=== PATIENT | male | born 1965 | race Caucasian/White ===

== ENCOUNTER 2018-01-22 13:42 | Inpatient (IN) | payer BC ==
[2018-01-22] MEDS ORDERED: ASPIRIN 81 MG PO STA (14:27)
[2018-01-22] MEDS ORDERED: NITROGLYCERIN OINT 1 INCH/GM PACKET TOPICAL STA (14:27)
--- NOTE | 2018-01-22 14:31 | ED ---
General Adult HPI - General Chief complaint: Chest Pain Stated complaint: chest pain Time Seen by Provider: 01/22/18 14:04 Source: patient, RN notes reviewed Mode of arrival: wheelchair Limitations: no limitations - History of Present Illness Initial comments: Patient is a pleasant 52-year-old male presenting to the emergency department with complaints of chest discomfort. Onset of symptoms was this morning while picking up a battery. Discomfort has been stable since that time however has improved. Discomfort is currently 4/10. Discomfort feels like heaviness without radiation. No associated dyspnea, nausea, or diaphoresis. Patient states symptoms do worsen with exertion. Patient did have similar symptoms a week ago with similar onset. Otherwise symptoms are not chronic. - Related Data Home Medications Medication Instructions Recorded Confirmed Aspirin EC [Ecotrin Low Dose] 81 mg PO DAILY 01/22/18 01/22/18 Allergies Allergy/AdvReac Type Severity Reaction Status Date / Time No Known Allergies Allergy Verified 01/22/18 14:20 Review of Systems ROS Statement: Those systems with pertinent positive or pertinent negative responses have been documented in the HPI. ROS Other: All systems not noted in ROS Statement are negative. Constitutional: Denies: fever Eyes: Denies: eye pain ENT: Denies: ear pain Respiratory: Denies: cough, dyspnea Cardiovascular: Reports: chest pain Endocrine: Denies: fatigue Gastrointestinal: Denies: abdominal pain Genitourinary: Denies: dysuria Musculoskeletal: Denies: back pain Skin: Denies: rash Neurological: Denies: weakness Past Medical History Past Medical History: No Reported History History of Any Multi-Drug Resistant Organisms: None Reported Past Surgical History: No Surgical Hx Reported Past Psychological History: No Psychological Hx Reported Smoking Status: Never smoker Past Alcohol Use History: Occasional Past Drug Use History: None Reported General Exam Limitations: no limitations General appearance: alert, in no apparent distress Head exam: Present: atraumatic Eye exam: Present: normal appearance, PERRL ENT exam: Present: normal oropharynx Neck exam: Present: normal inspection Respiratory exam: Present: normal lung sounds bilaterally. Absent: chest wall tenderness Cardiovascular Exam: Present: regular rate, normal rhythm Expanded Peripheral pulses: 2+: Radial (R), Radial (L), Posterior Tibialis (R), Posterior Tibialis (L) GI/Abdominal exam: Present: soft. Absent: tenderness Extremities exam: Present: normal inspection. Absent: pedal edema, calf tenderness Neurological exam: Present: alert Psychiatric exam: Present: normal affect, normal mood Skin exam: Present: normal color Course Vital Signs 01/22/18 01/22/18 01/22/18 13:47 14:31 15:52 Temperature 98.2 F Pulse Rate 81 49 L Pulse Rate [ 70 Welder Explosion ] Respiratory 18 18 Rate Blood Pressure 160/102 151/94 O2 Sat by Pulse 99 98 Oximetry 01/22/18 16:08 Temperature Pulse Rate 55 L Pulse Rate [ Welder Explosion ] Respiratory 18 Rate Blood Pressure 150/88 O2 Sat by Pulse 97 Oximetry - Reevaluation(s) Reevaluation #1: 01/22/18 16:03 Repeat EKG: Sinus bradycardia 52. MN 182. QRS 92. QT 412. QTC 383. Normal axis. Normal QRS. No acute ST change. EKG Findings - EKG Comments: EKG Findings:: Sinus rhythm 67. MN 180. QRS 96. QT 376. QTc 397. Normal axis.inferior Q waves. No acute ST change Medical Decision Making - Medical Decision Making Patient had increasing discomfort in the emergency department 10/13. Patient received sublingual nitroglycerin with symptoms now again of pain improved to 4/ 10. Case was discussed in detail with Dr. Knight, who will admit for hospital call. Cardiology has been paged. Heparin will be started. Repeat EKG without significant changes. - Lab Data Result diagrams: 01/22/18 14:25 01/22/18 14:25 Lab Results 01/22/18 01/22/18 01/22/18 Range/Units 14:25 14:25 14:25 WBC 8.1 (3.8-10.6) k/uL RBC 5.70 (4.30-5.90) m/uL Hgb 16.7 (13.0-17.5) gm/dL Hct 50.8 (39.0-53.0) % MCV 89.2 (80.0-100.0) fL MCH 29.3 (25.0-35.0) pg MCHC 32.8 (31.0-37.0) g/dL RDW 13.0 (11.5-15.5) % Plt Count 249 (150-450) k/uL Neutrophils % 75 % Lymphocytes % 16 % Monocytes % 5 % Eosinophils % 1 % Basophils % 1 % Neutrophils # 6.1 (1.3-7.7) k/uL Lymphocytes # 1.3 (1.0-4.8) k/uL Monocytes # 0.4 (0-1.0) k/uL Eosinophils # 0.1 (0-0.7) k/uL Basophils # 0.0 (0-0.2) k/uL PT (9.0-12.0) sec INR (<1.2) APTT (22.0-30.0) sec Sodium 140 (137-145) mmol/L Potassium 4.4 (3.5-5.1) mmol/L Chloride 106 (98-107) mmol/L Carbon Dioxide 24 (22-30) mmol/L Anion Gap 10 mmol/L BUN 18 (9-20) mg/dL Creatinine 0.86 (0.66-1.25) mg/dL Est GFR (CKD-EPI)AfAm >90 (>60 ml/min/1.73 sqM) Est GFR (CKD-EPI)NonAf >90 (>60 ml/min/1.73 sqM) Glucose 142 H (74-99) mg/dL Calcium 10.0 (8.4-10.2) mg/dL Magnesium 2.1 (1.6-2.3) mg/dL Total Bilirubin 0.4 (0.2-1.3) mg/dL AST 38 (17-59) U/L ALT 39 (21-72) U/L Alkaline Phosphatase 50 (38-126) U/L Total Creatine Kinase 193 H (55-170) U/L CK-MB (CK-2) 10.3 H (0.0-2.4) ng/mL CK-MB (CK-2) Rel Index 5.3 Troponin I 0.688 H* (0.000-0.034) ng/mL Total Protein 7.6 (6.3-8.2) g/dL Albumin 4.3 (3.5-5.0) g/dL 01/22/18 Range/Units 14:25 WBC (3.8-10.6) k/uL RBC (4.30-5.90) m/uL Hgb (13.0-17.5) gm/dL Hct (39.0-53.0) % MCV (80.0-100.0) fL MCH (25.0-35.0) pg MCHC (31.0-37.0) g/dL RDW (11.5-15.5) % Plt Count (150-450) k/uL Neutrophils % % Lymphocytes % % Monocytes % % Eosinophils % % Basophils % % Neutrophils # (1.3-7.7) k/uL Lymphocytes # (1.0-4.8) k/uL Monocytes # (0-1.0) k/uL Eosinophils # (0-0.7) k/uL Basophils # (0-0.2) k/uL PT 10.2 (9.0-12.0) sec INR 1.0 (<1.2) APTT 24.9 (22.0-30.0) sec Sodium (137-145) mmol/L Potassium (3.5-5.1) mmol/L Chloride (98-107) mmol/L Carbon Dioxide (22-30) mmol/L Anion Gap mmol/L BUN (9-20) mg/dL Creatinine (0.66-1.25) mg/dL Est GFR (CKD-EPI)AfAm (>60 ml/min/1.73 sqM) Est GFR (CKD-EPI)NonAf (>60 ml/min/1.73 sqM) Glucose (74-99) mg/dL Calcium (8.4-10.2) mg/dL Magnesium (1.6-2.3) mg/dL Total Bilirubin (0.2-1.3) mg/dL AST (17-59) U/L ALT (21-72) U/L Alkaline Phosphatase (38-126) U/L Total Creatine Kinase (55-170) U/L CK-MB (CK-2) (0.0-2.4) ng/mL CK-MB (CK-2) Rel Index Troponin I (0.000-0.034) ng/mL Total Protein (6.3-8.2) g/dL Albumin (3.5-5.0) g/dL - Radiology Data Radiology results: image reviewed (Chest x-ray shows no acute process) Critical Care Time Critical Care Time: Yes Total Critical Care Time: 34 Disposition Clinical Impression: NSTEMI (non-ST elevated myocardial infarction) Disposition: ADMITTED IP TO THIS [facility] Condition: Serious Is patient prescribed a controlled substance at d/c from ED?: No Referrals: None,Stated [Primary Care Provider] - 1-2 days Decision Time: 16:14
--- NOTE | 2018-01-22 15:05 | XR ---
EXAMINATION TYPE: XR chest 2V DATE OF EXAM: 01/22/2018 COMPARISON: None HISTORY: Chest pain TECHNIQUE: Frontal and lateral views of the chest are obtained. FINDINGS: There is no focal air space opacity, pleural effusion, or pneumothorax seen. The cardiac silhouette size is within normal limits. The osseous structures are intact. Patient is rotated. The re are overlying cardiac leads. IMPRESSION: No acute cardiopulmonary process.
[2018-01-22 15:08] LABS: Basophils % (A) 1 %; Eosinophils # (A) 0.1 k/uL (0-0.7); Eosinophils % (A) 1 %; HCT 50.8 % (39.0-53.0); HGB 16.7 gm/dL (13.0-17.5); Lymphocytes # (A) 1.3 k/uL (1.0-4.8); Lymphocytes % (A) 16 %; MCH 29.3 pg (25.0-35.0); MCHC 32.8 g/dL (31.0-37.0); MCV 89.2 fL (80.0-100.0); Mean Platelet Volume 7.2; Monocytes # (A) 0.4 k/uL (0-1.0); Monocytes % (A) 5 %; Neutrophils # (A) 6.1 k/uL (1.3-7.7); Neutrophils % (A) 75 %; Platelet Count 249 k/uL (150-450); WBC 8.1 k/uL (3.8-10.6)
[2018-01-22 15:13] LABS: Partial Thromboplastin Time 24.9 sec (22.0-30.0); Prothrombin Time 10.2 sec (9.0-12.0)
[2018-01-22 15:17] LABS: ALT 39 U/L (21-72); AST 38 U/L (17-59); Albumin 4.3 g/dL (3.5-5.0); Alkaline Phosphatase 50 U/L (38-126); Anion Gap 10 mmol/L; Blood Urea Nitrogen 18 mg/dL (9-20); Carbon Dioxide 24 mmol/L (22-30); Chloride 106 mmol/L (98-107); Glucose 142 mg/dL (74-99); Magnesium 2.1 mg/dL (1.6-2.3); Potassium 4.4 mmol/L (3.5-5.1); Sodium 140 mmol/L (137-145); Total Bilirubin 0.4 mg/dL (0.2-1.3); Total Protein 7.6 g/dL (6.3-8.2)
[2018-01-22 15:46] LABS: Creatine Kinase MB 10.3 ng/mL (0.0-2.4)
[2018-01-22 15:50] LABS: Troponin I 0.688 ng/mL (0.000-0.034)
[2018-01-22] MEDS: NITROGLYCERIN SL TABS 0.4 MG TAB SUBLINGUAL PRN ×3 (16:05→16:27)
[2018-01-22] MEDS ORDERED: HEPARIN SODIUM,PORCINE 5,000 UNIT/ML 1 ML VIAL IV ONE (16:14)
[2018-01-22] MEDS ORDERED: NITROGLYCERIN SL TABS 0.4 MG TAB SUBLINGUAL PRN ×2 (16:14→23:53)
[2018-01-22] MEDS ORDERED: HEPARIN SODIUM,PORCINE 5,000 UNIT/ML 1 ML VIAL IV PRN (16:14)
[2018-01-22] MEDS ORDERED: HEPARIN SOD,PORK IN 0.45% NACL 25,000 UNIT in 0.45% NACL 1 500ML.BAG IV SCH (16:15)
--- NOTE | 2018-01-22 17:07 | P.HPIM ---
History of Present Illness H&P Date: 01/22/18 Chief Complaint: Chest pain This is a 52-year-old male with no significant past medical history who presented to the emergency room with chest pain. Patient said that a few days ago he started having pain in both arms that he was attributing to him lifting stuff at work. This morning, after he lifted the battery from the floor he started having the same pain again that was associated with severe chest pain. Patient said that his pain was heavy-like sensation mostly in the center of his chest with radiation to both forearms. Patient said that his pain was 8 out of 10 in severity. He denies any shortness of breath or diaphoresis. No palpitation. Patient presented to the emergency room for further evaluation. Twelve-lead EKG in the emergency showed no acute ischemic changes. Initial troponin was elevated at 0.68. Patient was started on IV heparin drip and will be admitted to cardiac floor with cardiology consultation. Patient also had a nitroglycerin patch on that he stay is improving his pain only slightly. Patient does not have any underlying medical issues that he is aware of. No cardiac history. He is a nonsmoker. He reported premature family history of coronary artery disease in multiple family members including his father. Review of Systems Review of system: 14 points review of systems were obtained and were negative except to what were mentioned in the HPI. Past Medical History Past Medical History: No Reported History History of Any Multi-Drug Resistant Organisms: None Reported Past Surgical History: No Surgical Hx Reported Past Psychological History: No Psychological Hx Reported Smoking Status: Never smoker Past Alcohol Use History: Occasional Past Drug Use History: None Reported Medications and Allergies Home Medications Medication Instructions Recorded Confirmed Type Aspirin EC [Ecotrin Low Dose] 81 mg PO DAILY 01/22/18 01/22/18 History Allergies Allergy/AdvReac Type Severity Reaction Status Date / Time No Known Allergies Allergy Verified 01/22/18 14:20 Physical Exam Vitals: Vital Signs Temp Pulse Pulse Resp BP Pulse Ox 01/22/18 16:43 49 L 18 98/51 97 01/22/18 16:25 47 L 18 107/63 97 01/22/18 16:13 51 L 18 134/83 97 01/22/18 16:08 55 L 18 150/88 97 01/22/18 15:52 49 L 18 151/94 98 01/22/18 14:31 70 01/22/18 13:47 98.2 F 81 18 160/102 99 Intake and Output 01/22/18 01/22/18 01/22/18 06:59 14:59 22:59 Other: Weight 88.451 kg General: The patient is awake and alert, in no distress Eye: there is normal conjunctiva bilaterally. Neck: The neck is supple, there is no JVD. Cardiovascular: Normal S1-S2, no S3-S4, no murmurs. Respiratory: Lungs clear to auscultation bilaterally Gastrointestinal: Abdomen is soft, nontender Musculoskeletal: There is no pedal edema. Neurological:. Speech is normal. Skin: Skin is warm and dry Results CBC & Chem 7: 01/22/18 14:25 01/22/18 14:25 Labs: Abnormal Lab Results - Last 24 Hours (Table) 01/22/18 01/22/18 Range/Units 14:25 14:25 Glucose 142 H (74-99) mg/dL Total Creatine Kinase 193 H (55-170) U/L CK-MB (CK-2) 10.3 H (0.0-2.4) ng/mL Troponin I 0.688 H* (0.000-0.034) ng/mL Assessment and Plan Assessment: This is a 52-year-old male with no significant past medical history who presented to the emergency room with chest pain and was found to have a non-ST elevation MA. Urgency. No acute ischemic changes. Initial troponin was 0.68. Assessment -Non-ST elevation myocardial infarction Plan -We will continue medical treatment. Patient was started on IV heparin. Nitroglycerin patch ordered. I will start patient on Lipitor 80 mg daily and metoprolol 25 mg twice a day. Continue to trend troponin. Echocardiogram ordered. Cardiology consulted. Continue telemetry monitoring. Check fasting lipid profile in the morning.
[2018-01-22] MEDS: SODIUM CHLORIDE 0.9% 1,000 ML IV SCH (17:20)
[2018-01-22] MEDS: MORPHINE SULFATE 2 MG/ML SYRINGE IVP PRN ×2 (18:19→22:30)
[2018-01-22 21:00] LABS: Creatine Kinase MB 25.3 ng/mL (0.0-2.4)
[2018-01-22 21:04] LABS: Troponin I 2.38 ng/mL (0.000-0.034)
[2018-01-22] MEDS: ATORVASTATIN 80 MG TAB PO SCH (22:10)
[2018-01-22] MEDS: NITROGLYCERIN OINT 1 INCH/GM PACKET TOPICAL SCH (22:11)
[2018-01-22] MEDS ORDERED: SODIUM CHLORIDE 0.9% 1,000 ML IV ONE (22:34)
[2018-01-22] MEDS ORDERED: VERAPAMIL 2.5 MG/ML 2 ML AMP ONE (22:44)
[2018-01-22] MEDS ORDERED: LIDOCAINE 1% INJ 10MG/ML (20 ML MDV) ONE (22:44)
[2018-01-22] MEDS ORDERED: MIDAZOLAM 2 MG/2 ML VIAL ONE (22:57)
[2018-01-22] MEDS: MIDAZOLAM 2 MG/2 ML VIAL IV ONE ×2 (23:02→23:15)
[2018-01-22] MEDS ORDERED: LIDOCAINE 1% INJ 10MG/ML (20 ML MDV) SQ ONE (23:04)
[2018-01-22] MEDS: VERAPAMIL SYRINGE (5 MG/10 ML) INTRAARTER ONE ×2 (23:12→23:44)
[2018-01-22] MEDS ORDERED: BIVALIRUDIN BOLUS 250 MG/50 ML IV ONE (23:21)
[2018-01-22] MEDS ORDERED: BIVALIRUDIN 250 MG in SODIUM CHLORIDE 0.9% 50 ML IV ONE (23:22)
[2018-01-22] MEDS ORDERED: fentaNYL (PF) 50 MCG/ML 2 ML AMP ONE (23:23)
[2018-01-22] MEDS ORDERED: fentaNYL (PF) 50 MCG/ML 2 ML AMP IV ONE (23:25)
[2018-01-22] MEDS: NITROGLYCERIN 1000MCG/10ML SYRINGE INTRACORON ONE ×2 (23:28→23:35)
[2018-01-22] MEDS ORDERED: niCARdipine Syringe (1,000 mcg/10 mL) INTRACORON ONE (23:35)
[2018-01-22] MEDS ORDERED: IOPAMIDOL-370 125ML BTL INJ ONE (23:36)
[2018-01-22] MEDS ORDERED: SODIUM CHLORIDE 0.9% 1,000 ML IV SCH (23:45)
[2018-01-22] MEDS ORDERED: TICAGRELOR 90 MG TAB ONE (23:45)
[2018-01-22] MEDS ORDERED: TICAGRELOR 90 MG TAB PO ONE (23:48)
[2018-01-22] MEDS ORDERED: MAG HYDROX/AL HYDROX/SIMETH 30 ML CUP PO PRN (23:53)
[2018-01-22] MEDS ORDERED: RX INFO: IV CONTRAST WAS GIVEN 1 EACH MISC MISCELLANE PRN (23:53)
[2018-01-22] MEDS ORDERED: ZOLPIDEM 5 MG TAB PO PRN (23:53)
[2018-01-22] MEDS ORDERED: ATROPINE SULFATE 0.1 MG/ML 10ML SYRINGE IV PRN (23:53)
--- NOTE | 2018-01-22 23:59 | P.CRDCN ---
History of Present Illness Consult date: 01/22/18 Chief complaint: Chest discomfort History of present illness: This is a pleasant 52-year-old gentleman with no significant past medical history but significant family history of coronary artery disease presented to the emergency room complaining of chest discomfort. It started earlier today, and the patient described it as a pressure across her chest without any radiation to the arm or neck or shoulders and without any associated symptoms of nausea, sweating, dizziness or lightheadedness or syncope. The EKG showed sinus rhythm without any significant ST or T-wave abnormalities. The first set of cardiac enzymes came in to be slightly elevated but the second set of enzymes came in to be about 5. The patient continues to have ongoing chest discomfort. Because of that an emergent heart catheterization was advised. The patient underwent a heart catheterization which revealed critical disease involving the proximal RCA appears to be in the range of 99.9%. He subsequently underwent successful stenting of the RCA using a drug-eluting stent with a good angiographic results and without any complication from right radial approach. By the end of the procedure he was chest pain-free. The patient does not have any history of coronary artery disease, diabetes, hypertension, or dyslipidemia. As a matter of fact he takes only aspirin at home. He does not smoke and does not drink alcohol. He does have fairly significant family history of coronary artery disease with his father. Past Medical History Past Medical History: No Reported History History of Any Multi-Drug Resistant Organisms: None Reported Past Surgical History: No Surgical Hx Reported Additional Past Surgical History / Comment(s): [place] teeth extracted, colonoscopy/polypectomy(benign) Past Anesthesia/Blood Transfusion Reactions: No Reported Reaction Smoking Status: Never smoker - Past Family History Mother Family Medical History: Cancer Father Family Medical History: Myocardial Infarction ([place]) Medications and Allergies Home Medications Medication Instructions Recorded Confirmed Type Aspirin EC [Ecotrin Low Dose] 81 mg PO DAILY 01/22/18 01/22/18 History Allergies Allergy/AdvReac Type Severity Reaction Status Date / Time No Known Allergies Allergy Verified 01/22/18 14:20 Physical Exam Vitals: Vital Signs Temp Pulse Pulse Resp BP Pulse Ox 01/22/18 22:25 98.0 F 51 L 18 127/78 98 01/22/18 21:28 97.9 F 55 L 18 123/72 100 01/22/18 19:13 98.2 F 51 L 18 110/68 97 01/22/18 18:10 57 L 18 121/69 98 01/22/18 16:43 49 L 18 98/51 97 01/22/18 16:25 47 L 18 107/63 97 01/22/18 16:13 51 L 18 134/83 97 01/22/18 16:08 55 L 18 150/88 97 01/22/18 15:52 49 L 18 151/94 98 01/22/18 14:31 70 01/22/18 13:47 98.2 F 81 18 160/102 99 Intake and Output 01/22/18 01/22/18 01/23/18 14:59 22:59 06:59 Intake Total 300 Balance 300 Intake: IV 300 Other: Weight 88.451 kg - Constitutional General appearance: no acute distress - Respiratory Respiratory: bilateral: CTA - Cardiovascular Rhythm: regular Heart sounds: normal: S1, S2 Abnormal Heart Sounds: systolic murmur Results 01/22/18 14:25 01/22/18 14:25 Cardiac Enzymes 01/22/18 01/22/18 01/22/18 Range/Units 14:25 14:25 20:02 AST 38 (17-59) U/L CK-MB (CK-2) 10.3 H 25.3 H (0.0-2.4) ng/mL Troponin I 0.688 H* 2.380 H* (0.000-0.034) ng/mL Coagulation 01/22/18 Range/Units 14:25 PT 10.2 (9.0-12.0) sec APTT 24.9 (22.0-30.0) sec CBC 01/22/18 Range/Units 14:25 WBC 8.1 (3.8-10.6) k/uL RBC 5.70 (4.30-5.90) m/uL Hgb 16.7 (13.0-17.5) gm/dL Hct 50.8 (39.0-53.0) % Plt Count 249 (150-450) k/uL Comprehensive Metabolic Panel 01/22/18 Range/Units 14:25 Sodium 140 (137-145) mmol/L Potassium 4.4 (3.5-5.1) mmol/L Chloride 106 (98-107) mmol/L Carbon Dioxide 24 (22-30) mmol/L BUN 18 (9-20) mg/dL Creatinine 0.86 (0.66-1.25) mg/dL Glucose 142 H (74-99) mg/dL Calcium 10.0 (8.4-10.2) mg/dL AST 38 (17-59) U/L ALT 39 (21-72) U/L Alkaline Phosphatase 50 (38-126) U/L Total Protein 7.6 (6.3-8.2) g/dL Albumin 4.3 (3.5-5.0) g/dL Current Medications Generic Name Dose Route Start Last Admin Trade Name Freq PRN Reason Stop Dose Admin Al Hydroxide/Mg Hydroxide 30 ml 01/22/18 23:53 Maalox PO Q4HR PRN Heartburn Aspirin 81 mg 01/23/18 09:00 Aspirin PO DAILY BRYANNA Atorvastatin Calcium 80 mg 01/22/18 17:15 01/22/18 22:10 Lipitor PO 80 mg DAILY BRYANNA Administration Atropine Sulfate 0.5 mg 01/22/18 23:53 Atropine IV ONCE PRN Symptomatic Bradycardia Heparin Sodium (Porcine) 0 unit 01/22/18 16:14 Heparin IV Q6HR PRN Low PTT Protocol Heparin Sodium/Sodium Chloride 500 mls @ 20 mls/hr 01/22/18 16:15 01/22/18 16 :41 25,000 unit/ Sodium Chloride IV 11.306 units/kg/hr .Q24H BRYANNA 20 mls/hr Administration Protocol 11.306 UNITS/KG/HR Sodium Chloride 1,000 mls @ 75 mls/hr 01/22/18 17:15 01/22/18 17:20 Saline 0.9% IV Not Given .[id number] BRYANNA Sodium Chloride 1,000 mls @ 100 mls/hr 01/22/18 23:45 Saline 0.9% IV 01/23/18 05:46 .Q10H BRYANNA Metoprolol Tartrate 25 mg 01/22/18 21:00 Lopressor PO BID PENDING SALE TO [facility] Miscellaneous Information 1 each 01/22/18 23:53 Rx Info: Iv Contrast Was Given MISCELLANE 01/24/18 23:53 DAILY PRN Per Protocol Morphine Sulfate 2 mg 01/22/18 17:05 01/22/18 22:30 Morphine Sulfate (Inj) IVP 2 mg Q4H PRN Administration Pain/Discomfort Nitroglycerin 0.4 mg 01/22/18 16:02 01/22/18 16:27 Nitrostat SUBLINGUAL 0.4 mg Q5M PRN Administration Chest Pain Nitroglycerin 1 inch 01/22/18 19:00 01/22/18 22:11 Nitro-Bid Oint TOPICAL 1 inch Q6HR BRYANNA Administration Nitroglycerin 0.4 mg 01/22/18 23:53 Nitrostat SUBLINGUAL Q5M PRN Chest Pain Ticagrelor 90 mg 01/23/18 09:00 Brilinta PO BID BRYANNA Zolpidem Tartrate 5 mg 01/22/18 23:53 Ambien PO HS PRN Insomnia Intake and Output 01/22/18 01/22/18 01/23/18 14:59 22:59 06:59 Intake Total 300 Balance 300 Intake: IV 300 Other: Weight 88.451 kg Patient Weight 01/23/18 06:59 Weight 88.451 kg 01/22/18 14:25 01/22/18 14:25 Assessment and Plan Assessment: Assessment #1 acute non-ST deviation myocardial infarction #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
[2018-01-23] MEDS: METOPROLOL TARTRATE 25 MG TAB PO SCH ×3 (00:35→20:04)
[2018-01-23] MEDS: NITROGLYCERIN OINT 1 INCH/GM PACKET TOPICAL SCH ×3 (00:36→11:31)
[2018-01-23] MEDS: SODIUM CHLORIDE 0.9% 1,000 ML IV SCH ×2 (03:00→16:17)
[2018-01-23 03:31] LABS: Creatine Kinase MB 30.9 ng/mL (0.0-2.4)
[2018-01-23 03:40] LABS: Troponin I 10.3 ng/mL (0.000-0.034)
[2018-01-23 06:35] LABS: Basophils % (A) 0 %; Eosinophils # (A) 0.1 k/uL (0-0.7); Eosinophils % (A) 1 %; HCT 46.3 % (39.0-53.0); HGB 15.3 gm/dL (13.0-17.5); Lymphocytes # (A) 1.1 k/uL (1.0-4.8); Lymphocytes % (A) 10 %; MCH 29.7 pg (25.0-35.0); MCHC 33.1 g/dL (31.0-37.0); MCV 89.9 fL (80.0-100.0); Mean Platelet Volume 7.2; Monocytes # (A) 0.5 k/uL (0-1.0); Monocytes % (A) 5 %; Neutrophils # (A) 8.9 k/uL (1.3-7.7); Neutrophils % (A) 83 %; Platelet Count 222 k/uL (150-450); RBC 5.15 m/uL (4.30-5.90); RDW 13.3 % (11.5-15.5); WBC 10.7 k/uL (3.8-10.6)
--- NOTE | 2018-01-23 07:22 | CC ---
CARDIAC CATHETERIZATION REPORT DATE OF SERVICE: 01/23/2018 PERFORMING PHYSICIAN: Dinesh Dickson MD, Blender / Cook. PROCEDURE PERFORMED: 1. Selective right and left coronary angiogram. 2. Left heart catheterization. 3. Successful stenting of the proximal RCA using 3.0 x 15 mm Xience drug-eluting stent, which was postdilated using 3.25 mm balloon with excellent angiographic results and reduction of stenosis from 99% to 0%. INDICATION: This is a pleasant 52-year-old gentleman with no significant past medical history, but significant family history of coronary artery disease, who presented to the emergency room complaining of chest discomfort and he was ruled in for acute non-ST elevation myocardial infarction. As a matter of fact, he continues to have ongoing chest discomfort. Because of that, a heart catheterization was advised. APPROACH: Right radial artery. COMPLICATION: None. LEVEL OF SEDATION: Moderate sedation length of 45 minutes. PROCEDURE DESCRIPTION: After obtaining an informed consent, the patient was brought to the cardiac laboratory associate. The right radial artery was cannulated using micropuncture technique. The micropuncture wire passed easily, then I placed a 6-Korean sheath in the right radial artery. At that point, I did give the patient 2 mg of verapamil IA. Subsequently, I did selective right and left coronary angiogram using JR4 and JL3.5 catheters. Left heart catheterization was performed using 6-Korean pigtail catheter. After that, I did intervene on the RCA, please see a separate paragraph for that. SELECTIVE CORONARY ANGIOGRAM: 1. The right coronary artery is a large caliber vessel and it is a dominant vessel. The RCA in the proximal portion has a tight lesion, appeared to be in the range of 99% and seems to be hazy and possibly carry thrombus. The mid RCA has mild disease only. The RCA distally bifurcates into PDA and PLV branches. The PLV branch appears to have a lesion in the range of 60%. The PDA branch appears to be angiographically normal. 2. The left main has mild disease only in the range of 20% to 30%. only. It bifurcates into the left circumflex and left anterior descending artery. 3. The left circumflex is a large caliber vessel. It is a nondominant vessel. The proximal circumflex appeared to have mild disease only. It gives rise into a large first OM branch which appeared to have an ostial disease in the range of 20% to 30%. The mid circumflex is normal and gives rise into second OM branch which appeared to have mild disease only. The circumflex continued after that as a small- caliber vessel in the AV groove. 4. The LAD, the proximal LAD appeared to have mild disease only and gives rise into a large diagonal branch which appears to be angiographically normal. The mid and distal LAD appear to have mild disease only. HEMODYNAMICS: The left ventricular end-diastolic pressure was 12 mmHg without significant gradient across the aortic valve. PCI of the RCA anticoagulation was initiated using Angiomax. Subsequently, I took JR4 guide and the RCA was engaged. I did wire the RCA using a whisper wire. After that, using 2.5 x 12 mm balloon, before I was a 3.0 x 15 mm stent where the stent was positioned under fluoroscopy guidance and deployed under 14 atmospheres for 20 seconds. I post dilated the stent using 3.25 mm NC balloon which was inflated under 18 atmospheres for 20 seconds. The following angiogram showed good angiographic results and the procedure at that point was completed without any complication. The PLV branch of the RCA lesion seems to be slightly better and appears to be in the range of 60%. CONCLUSION: 1. Acute non ST elevation myocardial infarction in this 52-year-old gentleman who continues to have ongoing chest discomfort. 2. Critical disease involving the proximal right coronary artery with possible thrombus burden. 3. Intermediate to severe disease involving the PLV branch of the right coronary artery. 4. Mild disease involving the left coronary system. 5. Successful stenting of the proximal RCA using 3.0 x 15 mm Xience drug-eluting stent with reduction of stenosis from 99% to 0%. POST PROCEDURE MANAGEMENT: 1. Dual anti-platelet therapy. 2. Risk factors modifications. 3. Follow up with the patient. MMODL / IJN: [id number] /
[2018-01-23] MEDS: TICAGRELOR 90 MG TAB PO SCH ×2 (08:28→20:04)
[2018-01-23] MEDS: ATORVASTATIN 80 MG TAB PO SCH (08:28)
[2018-01-23] MEDS: ASPIRIN 81 MG PO SCH (08:28)
[2018-01-23] MEDS ORDERED: ASPIRIN 325 MG TAB PO SCH (09:00)
--- NOTE | 2018-01-23 10:40 | ECHOF ---
Referral Reason:nstemi MEASUREMENTS -------- HEIGHT: 172.7 cm WEIGHT: 89.8 kg BP: 98/61 RVIDd: 3.4 cm (< 3.3) IVSd: 1.0 cm (0.6 - 1.1) LVIDd: 4.6 cm (3.9 - 5.3) LVPWd: 1.0 cm (0.6 - 1.1) IVSs: 1.3 cm LVIDs: 2.9 cm LVPWs: 1.3 cm LAESV Index (A-L): 26.61 ml/m Ao Diam: 3.1 cm (2.0 - 3.7) AV Cusp: 1.8 cm (1.5 - 2.6) LA Diam: 3.8 cm (2.7 - 3.8) EPSS: 0.3 cm MV E Davin: 0.76 m/s MV DecT: 250 ms MV A Davin: 0.55 m/s MV E/A Ratio: 1.38 AR PHT: 943 ms RAP: 5.00 mmHg RVSP: 13.98 mmHg MV EF SLOPE: 112.78 mm/s (70 - 150) MV EXCURSION: 1.70 cm (> 18.000) FINDINGS -------- Resting bradycardia (HR<60bpm). This was a technically good study. The left ventricular size is normal. Left ventricular wall thickness is normal. Overall left vent ricular systolic function is mildly impaired with, an EF between 45 - 50 %. septal Hypokinesis Inf erior Hypokinesis The right ventricle is mildly enlarged. Normal LA size by volume 22+/-6 ml/m2. The right atrium is normal in size. Aortic valve is trileaflet and is mildly thickened. Trace to mild aortic regurgitation. There is no evidence of aortic stenosis. The mitral valve leaflets are mildly thickened. There is trace mitral regurgitation. Trace tricuspid regurgitation present. Right ventricular systolic pressure is normal at < 35 mmHg. There is no evidence of pulmonary hypertension. Trace/mild (physiologic) pulmonic regurgitation. The aortic root size is normal. Normal inferior vena cava with normal inspiratory collapse consistent with estimated right atrial pre ssure of 5 mmHg. There is no pericardial effusion. CONCLUSIONS -------- 1. Resting bradycardia (HR<60bpm). 2. This was a technically good study. 3. The left ventricular size is normal. 4. Left ventricular wall thickness is normal. 5. Overall left ventricular systolic function is mildly impaired with, an EF between 45 - 50 %. 6. septal Hypokinesis 7. Inferior Hypokinesis 8. The right ventricle is mildly enlarged. 9. Normal LA size by volume 22+/-6 ml/m2. 10. Aortic valve is trileaflet and is mildly thickened. 11. Trace to mild aortic regurgitation. 12. The mitral valve leaflets are mildly thickened. 13. There is trace mitral regurgitation. 14. Trace tricuspid regurgitation present. 15. Right ventricular systolic pressure is normal at < 35 mmHg. 16. There is no evidence of pulmonary hypertension. 17. Trace/mild (physiologic) pulmonic regurgitation. 18. The aortic root size is normal. 19. There is no pericardial effusion. PHARMACY RESIDENT: Guru Chu RDCS
[2018-01-23 10:47] VITALS: BMI 30.7
[2018-01-23 14:12] LABS: Anion Gap 8 mmol/L; Blood Urea Nitrogen 14 mg/dL (9-20); Calcium 9.3 mg/dL (8.4-10.2); Carbon Dioxide 25 mmol/L (22-30); Chloride 106 mmol/L (98-107); Cholesterol 192 mg/dL (<200); Glucose 110 mg/dL (74-99); HDL Cholesterol 38 mg/dL (40-60); LDL Cholesterol,Calculated 137 mg/dL (0-99); Potassium 4.6 mmol/L (3.5-5.1); Sodium 139 mmol/L (137-145); Triglycerides 86 mg/dL (<150)
--- NOTE | 2018-01-23 15:34 | P.PN ---
Subjective Progress Note Date: 01/23/18 Patient is doing well today. Denies any chest pain this morning. No acute events overnight reported by nursing staff. Objective - Vital Signs Vital signs: Vital Signs Temp 98.2 F 01/23/18 08:00 Pulse 57 L 01/23/18 12:00 Resp 16 01/23/18 03:12 BP 117/74 01/23/18 12:00 Pulse Ox 96 01/23/18 12:00 Intake & Output 01/22/18 01/23/18 01/23/18 18:59 06:59 18:59 Intake Total 531 372 Output Total 500 Balance 531 -128 Weight 88.451 kg 91.8 kg 91.8 kg Intake: IV 331 Intake, IV Titration 200 150 Amount Sodium Chloride 0.9% 1, 200 150 000 ml @ 75 mls/hr IV . [id number] [facility] Rx#:[id number] Oral 222 Output: Urine 500 Other: # Voids 1 - Exam General: The patient is awake and alert, in no distress Eye: there is normal conjunctiva bilaterally. Neck: The neck is supple, there is no JVD. Cardiovascular: Normal S1-S2, no S3-S4, no murmurs. Respiratory: Lungs clear to auscultation bilaterally Gastrointestinal: Abdomen is soft, nontender Musculoskeletal: There is no pedal edema. Neurological:. Speech is normal. Skin: Skin is warm and dry - Labs CBC & Chem 7: 01/23/18 05:46 01/23/18 05:46 Labs: Abnormal Lab Results - Last 24 Hours (Table) 01/22/18 01/22/18 01/23/18 Range/Units 14:25 20:02 01:55 WBC (3.8-10.6) k/uL Neutrophils # (1.3-7.7) k/uL Glucose (74-99) mg/dL Total Creatine Kinase 193 H 363 H 469 H (55-170) U/L CK-MB (CK-2) 10.3 H 25.3 H 30.9 H (0.0-2.4) ng/mL Troponin I 0.688 H* 2.380 H* 10.300 H* (0.000-0.034) ng/mL LDL Cholesterol, Calc (0-99) mg/dL HDL Cholesterol (40-60) mg/dL 01/23/18 01/23/18 Range/Units 05:46 05:46 WBC 10.7 H (3.8-10.6) k/uL Neutrophils # 8.9 H (1.3-7.7) k/uL Glucose 110 H (74-99) mg/dL Total Creatine Kinase (55-170) U/L CK-MB (CK-2) (0.0-2.4) ng/mL Troponin I (0.000-0.034) ng/mL LDL Cholesterol, Calc 137 H (0-99) mg/dL HDL Cholesterol 38 L (40-60) mg/dL Assessment and Plan Assessment: This is a 52-year-old male with no significant past medical history who presented to the emergency room with chest pain and was found to have a non-ST elevation CO. EKG with no acute ischemic changes. 1. Non-ST elevation myocardial infarction: Status post left heart catheterization with successful stent placement to proximal RCA. We will continue dual antiplatelet therapy. Medical management. 2. Mild ischemic cardiomyopathy with estimated EF of 45-50% noted on echocardiogram 3. Hyperlipidemia with LDL of 137. Started on Lipitor Today, I reviewed his medication list and lab work results. Appreciate cardiology recommendations. Anticipate discharge home tomorrow.
--- NOTE | 2018-01-23 16:01 | P.PN ---
Subjective Progress Note Date: 01/23/18 This is a pleasant 52-year-old gentleman who presented to the hospital with a non-ST elevation myocardial infarction, he underwent a cardiac catheterization which revealed a critical lesion involving the proximal RCA subsequent to that he underwent angioplasty and stenting of that vessel. He was seen and examined this morning, denied any chest pain or difficulty in breathing. Blood pressure 118/70 with a heart rate in the 60s, 96% on room air. White blood cell count 10.7, hemoglobin 15.3, platelets 222. Sodium 139, potassium 4.6, BUN 14, creatinine 0.8. Objective - Vital Signs Vital signs: Vital Signs Temp 98.2 F 01/23/18 08:00 Pulse 57 L 01/23/18 12:00 Resp 16 01/23/18 03:12 BP 117/74 01/23/18 12:00 Pulse Ox 96 01/23/18 12:00 Intake & Output 01/22/18 01/23/18 01/23/18 18:59 06:59 18:59 Intake Total 531 372 Output Total 500 Balance 531 -128 Weight 88.451 kg 91.8 kg 91.8 kg Intake: IV 331 Intake, IV Titration 200 150 Amount Sodium Chloride 0.9% 1, 200 150 000 ml @ 75 mls/hr IV . [id number] [facility] Rx#:[id number] Oral 222 Output: Urine 500 Other: # Voids 1 - Exam PHYSICAL EXAMINATION: GENERAL: 82-year-old gentleman in no acute distress at the time of my examination HEENT: Head is atraumatic, normocephalic. Pupils equal, round. Sclera anicteric. Conjunctiva are clear. Mucous membranes of the mouth are moist. Neck is supple. There is no elevated jugular venous pressure.] bruit is heard. HEART EXAMINATION: Heart S1, S2 normal. No murmur or gallop heard. CHEST EXAMINATION: Lungs are clear to auscultation and precussion. No chest wall tenderness is noted on palpation or with deep breathing. ABDOMEN: Soft, nontender. Bowel sounds are heard. No organomegaly noted. EXTREMITIES: 2+ peripheral pulses with no evidence of peripheral edema and no calf tenderness noted. Right radial site clean and dry, good distal pulse NEUROLOGIC patient is awake, alert and orientedX3 . - Labs CBC & Chem 7: 01/23/18 05:46 01/23/18 05:46 Labs: Abnormal Lab Results - Last 24 Hours (Table) 01/22/18 01/23/18 01/23/18 Range/Units 20:02 01:55 05:46 WBC 10.7 H (3.8-10.6) k/uL Neutrophils # 8.9 H (1.3-7.7) k/uL Glucose (74-99) mg/dL Total Creatine Kinase 363 H 469 H (55-170) U/L CK-MB (CK-2) 25.3 H 30.9 H (0.0-2.4) ng/mL Troponin I 2.380 H* 10.300 H* (0.000-0.034) ng/mL LDL Cholesterol, Calc (0-99) mg/dL HDL Cholesterol (40-60) mg/dL 01/23/18 Range/Units 05:46 WBC (3.8-10.6) k/uL Neutrophils # (1.3-7.7) k/uL Glucose 110 H (74-99) mg/dL Total Creatine Kinase (55-170) U/L CK-MB (CK-2) (0.0-2.4) ng/mL Troponin I (0.000-0.034) ng/mL LDL Cholesterol, Calc 137 H (0-99) mg/dL HDL Cholesterol 38 L (40-60) mg/dL Assessment and Plan Plan: Assessment and plan #1 non-ST elevation myocardial infarction status post angioplasty and stenting of the RCA #2 hyperlipidemia Plan Echo cardiac gram with Doppler study was performed at revealed an ejection fraction of 45-50%. We'll continue the patient on his current medications. Increase activity and plan for possible discharge home in 48-72 hours if stable. DNP note has been reviewed, I agree with a documented findings and plan of care. Patient was seen and examined.
[2018-01-24 06:57] LABS: Basophils % (A) 0 %; Eosinophils # (A) 0.3 k/uL (0-0.7); Eosinophils % (A) 4 %; HCT 49.2 % (39.0-53.0); HGB 15.9 gm/dL (13.0-17.5); Lymphocytes # (A) 1.5 k/uL (1.0-4.8); Lymphocytes % (A) 19 %; MCH 29.3 pg (25.0-35.0); MCHC 32.4 g/dL (31.0-37.0); MCV 90.6 fL (80.0-100.0); Mean Platelet Volume 6.8; Monocytes # (A) 0.6 k/uL (0-1.0); Monocytes % (A) 8 %; Neutrophils # (A) 5.1 k/uL (1.3-7.7); Neutrophils % (A) 67 %; Platelet Count 229 k/uL (150-450); RBC 5.43 m/uL (4.30-5.90); RDW 13.1 % (11.5-15.5); WBC 7.7 k/uL (3.8-10.6)
[2018-01-24 07:05] LABS: Anion Gap 5 mmol/L; Blood Urea Nitrogen 19 mg/dL (9-20); Carbon Dioxide 27 mmol/L (22-30); Chloride 107 mmol/L (98-107); Glucose 90 mg/dL (74-99); Potassium 4.6 mmol/L (3.5-5.1); Sodium 139 mmol/L (137-145)
[2018-01-24] MEDS: ASPIRIN 81 MG PO SCH (08:50)
[2018-01-24] MEDS: ATORVASTATIN 80 MG TAB PO SCH (08:50)
[2018-01-24] MEDS: METOPROLOL TARTRATE 25 MG TAB PO SCH (08:50)
[2018-01-24] MEDS: TICAGRELOR 90 MG TAB PO SCH (08:50)
[2018-01-24] MEDS: SODIUM CHLORIDE 0.9% 1,000 ML IV SCH (08:51)
[2018-01-24 09:20] VITALS: BP 109/69; PULSE 72; RESP 16; TEMP 98.8
--- NOTE | 2018-01-24 09:36 | P.DS ---
Providers Date of admission: 01/22/18 16:14 Expected date of discharge: 01/24/18 Attending physician: iLlibeth Gomez Consults: 01/22/18 16:14 Consult Physician Urgent Consulting Provider: Basilia Ventura Consult Reason/Comments: nstemi Do you want consulting provider notified?: Yes 01/22/18 23:53 Consult Physician Routine Consulting Provider: [facility] Consult Reason/Comments: Post Interventional patient Do you want consulting provider notified?: Already Contacted Primary care physician: Stated None Hospital Course: This is a 52-year-old male with no significant past medical history who presented to the emergency room with chest pain and was found to have a non-ST elevation NV. EKG with no acute ischemic changes. 1. Non-ST elevation myocardial infarction: Status post left heart catheterization with successful stent placement to proximal RCA. We will continue dual antiplatelet therapy. Medical management. 2. Mild ischemic cardiomyopathy with estimated EF of 45-50% noted on echocardiogram 3. Hyperlipidemia with LDL of 137. Started on Lipitor Patient will be discharged home in a stable condition. He will follow-up with cardiology as directed. He was instructed about the importance of compliance with his medication. Patient Condition at Discharge: Fair Plan - Discharge Summary Discharge Rx Participant: Yes New Discharge Prescriptions: New Aspirin 81 mg PO DAILY #30 chew Atorvastatin [Lipitor] 80 mg PO DAILY #30 tab Lisinopril [Zestril] 5 mg PO DAILY #30 tab Metoprolol Tartrate [Lopressor] 25 mg PO BID #60 tab Nitroglycerin Sl Tabs [Nitrostat] 0.4 mg SUBLINGUAL Q5M PRN #5 tab PRN Reason: Chest Pain Ticagrelor [Brilinta] 90 mg PO BID #60 tab Discontinued Aspirin EC [Ecotrin Low Dose] 81 mg PO DAILY Discharge Medication List Aspirin 81 mg PO DAILY #30 chew 01/24/18 [Rx] Atorvastatin [Lipitor] 80 mg PO DAILY #30 tab 01/24/18 [Rx] Lisinopril [Zestril] 5 mg PO DAILY #30 tab 01/24/18 [Rx] Metoprolol Tartrate [Lopressor] 25 mg PO BID #60 tab 01/24/18 [Rx] Nitroglycerin Sl Tabs [Nitrostat] 0.4 mg SUBLINGUAL Q5M PRN #5 tab 01/24/18 [Rx] Ticagrelor [Brilinta] 90 mg PO BID #60 tab 01/24/18 [Rx] Follow up Appointment(s)/Referral(s): Dinesh Dickson MD [STAFF PHYSICIAN] - 01/30/18 1:15 pm (Monday) None,Stated [Primary Care Provider] - 1-2 days (Please contact your insurance to find primary physician in area.) Patient Instructions/Handouts: Heart Healthy Diet (DC), After Radial Heart Catheterization (GEN) Activity/Diet/Wound Care/Special Instructions: Pt has commercial insurance and qualifies for $5/mo Brillinta Discharge Disposition: HOME SELF-CARE
--- NOTE | 2018-01-24 12:22 | P.PN ---
Subjective Progress Note Date: 01/24/18 This is a pleasant 52-year-old gentleman who presented to the hospital with a non-ST elevation myocardial infarction, he underwent a cardiac catheterization which revealed a critical lesion involving the proximal RCA subsequent to that he underwent angioplasty and stenting of that vessel. He was seen and examined this morning, denied any chest pain or difficulty in breathing. Blood pressure 118/70 with a heart rate in the 60s, 96% on room air. White blood cell count 10.7, hemoglobin 15.3, platelets 222. Sodium 139, potassium 4.6, BUN 14, creatinine 0.8. 01/24/2018 Patient was seen and examined this morning, denies any chest pain, breathing overall has been stable. Echocardiogram with Doppler study revealed an ejection fraction of 45-50%. From cardiology's perspective, patient may be able to be discharged home today. We will make him a follow-up appointment to see Dr. Davidson in the office post discharge. Objective - Vital Signs Vital signs: Vital Signs Temp 98.8 F 01/24/18 08:00 Pulse 72 01/24/18 08:00 Resp 16 01/24/18 08:00 BP 109/69 01/24/18 08:00 Pulse Ox 96 01/24/18 08:00 Intake & Output 01/23/18 01/24/18 01/24/18 18:59 06:59 18:59 Intake Total 792 240 Output Total 1100 Balance -308 240 Weight 91.8 kg 92 kg Intake: Intake, IV Titration 150 Amount Sodium Chloride 0.9% 1, 150 000 ml @ 75 mls/hr IV . [id number] [facility] Rx#:[id number] Oral 642 240 Output: Urine 1100 Other: # Voids 1 2 - Exam PHYSICAL EXAMINATION: GENERAL: 82-year-old gentleman in no acute distress at the time of my examination HEENT: Head is atraumatic, normocephalic. Pupils equal, round. Sclera anicteric. Conjunctiva are clear. Mucous membranes of the mouth are moist. Neck is supple. There is no elevated jugular venous pressure.] bruit is heard. HEART EXAMINATION: Heart S1, S2 normal. No murmur or gallop heard. CHEST EXAMINATION: Lungs are clear to auscultation and precussion. No chest wall tenderness is noted on palpation or with deep breathing. ABDOMEN: Soft, nontender. Bowel sounds are heard. No organomegaly noted. EXTREMITIES: 2+ peripheral pulses with no evidence of peripheral edema and no calf tenderness noted. Right radial site clean and dry, good distal pulse NEUROLOGIC patient is awake, alert and orientedX3 . - Labs CBC & Chem 7: 01/24/18 06:32 01/24/18 06:32 Labs: Abnormal Lab Results - Last 24 Hours (Table) 01/23/18 Range/Units 05:46 Glucose 110 H (74-99) mg/dL LDL Cholesterol, Calc 137 H (0-99) mg/dL HDL Cholesterol 38 L (40-60) mg/dL Assessment and Plan Plan: Assessment and plan #1 non-ST elevation myocardial infarction status post angioplasty and stenting of the RCA #2 hyperlipidemia Plan Echo cardiac gram with Doppler study was performed at revealed an ejection fraction of 45-50%. We'll continue the patient on his current medications. Discharged home today, follow-up with Dr. Davidson in the office post discharge. DNP note has been reviewed, I agree with a documented findings and plan of care. Patient was seen and examined.
== END 2018-01-24 12:18 | disposition home or self-care (01) | DRG 247 ==
LOC: EC 13:42 → 3SCARD 16:14 → 2SICU 22:32 → 3SCARD 01-23 00:05
PROVIDERS: ADMIT Internal Medicine; ATTEND Internal Medicine
PROC: 027034Z Dilation of Coronary Artery, One Artery with Drug-eluting Intraluminal Device, Percutaneous Approach (ICD-10-PCS; principal; 2018-01-23)
PROC: 4A023N7 Measurement of Cardiac Sampling and Pressure, Left Heart, Percutaneous Approach (ICD-10-PCS; 2018-01-23)
PROC: B2111ZZ Fluoroscopy of Multiple Coronary Arteries using Low Osmolar Contrast (ICD-10-PCS; 2018-01-23)
DX: I21.4 Non-ST elevation (NSTEMI) myocardial infarction (principal); E78.5 Hyperlipidemia, unspecified; I25.10 Atherosclerotic heart disease of native coronary artery without angina pectoris; I25.5 Ischemic cardiomyopathy; R01.1 Cardiac murmur, unspecified; Z79.82 Long term (current) use of aspirin; Z82.49 Family history of ischemic heart disease and other diseases of the circulatory system; Z80.9 Family history of malignant neoplasm, unspecified
CPT/HCPCS: 36415; 71046; 80048; 80053; 80061; 82550; 82553; 83735; 84484; 85025; 85610; 85730; 93005; 93306; 93458; 94760; 96365; 96366; 96375; 96376; 99291; C1874

== ENCOUNTER 2019-05-10 07:44 | Day surgery (SDC) | payer BC ==
[2019-05-09 08:59] VITALS: BMI 28.8
[~2019-05-10 07:44] MED LIST: LACTATED RINGERS 1,000 ML IV SCH; LIDOCAINE 1% (10MG/ML) FOR IV START INTRADERMA PRN
[2019-05-10 08:07] VITALS: TEMP 97.3
[2019-05-10] MEDS ORDERED: PROPOFOL 10 MG/ML 20 ML VIAL IV ONE (08:30)
[2019-05-10] MEDS ORDERED: LIDOCAINE 1% INJ 10MG/ML (20 ML MDV) ONE (08:30)
--- NOTE | 2019-05-10 08:37 | P.GSHP ---
History of Present Illness H&P Date: 05/10/19 Chief Complaint: Screening colonoscopy This a 54-year-old male who presents today for screening colonoscopy. Patient denies any significant GI complaints. Past Medical History Past Medical History: Hyperlipidemia, Hypertension, Myocardial Infarction (ID) Last Myocardial Infarction Date:: 01/2018 History of Any Multi-Drug Resistant Organisms: None Reported Past Surgical History: Heart Catheterization With Stent Additional Past Surgical History / Comment(s): wisdom teeth extracted, colonoscopy/polypectomy(benign) Past Anesthesia/Blood Transfusion Reactions: No Reported Reaction Date of Last Stent Placement:: 01/2018 Smoking Status: Never smoker - Past Family History Mother Family Medical History: Cancer Father Family Medical History: Myocardial Infarction (ID) Medications and Allergies Home Medications Medication Instructions Recorded Confirmed Type Aspirin 81 mg PO DAILY #30 chew 01/24/18 05/09/19 Rx Atorvastatin [Lipitor] 80 mg PO DAILY #30 tab 01/24/18 05/10/19 Rx Metoprolol Tartrate [Lopressor] 25 mg PO BID #60 tab 01/24/18 05/10/19 Rx Nitroglycerin Sl Tabs [Nitrostat] 0.4 mg SUBLINGUAL Q5M PRN #5 tab 01/24/18 05/09/19 Rx Lisinopril [Zestril] 2.5 mg PO DAILY 05/09/19 05/10/19 History Allergies Allergy/AdvReac Type Severity Reaction Status Date / Time No Known Allergies Allergy Verified 05/10/19 08:09 Surgical - Exam Vital Signs Temp Pulse Resp BP Pulse Ox 97.3 F L 60 16 129/74 96 05/10/19 08:06 05/10/19 08:06 05/10/19 08:06 05/10/19 08:06 05/10/19 08:06 - General well developed, well nourished, no distress - Eyes PERRL - ENT normal pinna - Neck no masses - Respiratory normal expansion - Cardiovascular Rhythm: regular - Abdomen Abdomen: soft, non tender Assessment and Plan Assessment: We'll perform screening colonoscopy
--- NOTE | 2019-05-10 08:48 | P.OP ---
Date of Procedure: 05/10/19 Preoperative Diagnosis: Screening colonoscopy Postoperative Diagnosis: Normal colon Procedure(s) Performed: Colonoscopy Anesthesia: MAC Surgeon: Baljit Mcdonald Pathology: none sent Condition: stable Disposition: PACU Description of Procedure: N PROCEDURE: The patient was placed on the endoscopy table in the lateral position. Digital rectal examination was performed which revealed no abnormalities. The prostate was symmetrical without nodules. Flexible colonoscope was then placed in the patient's anus and passed throughout the entire colon. The ileocecal valve was visualized. The cecum, ascending, transverse, descending and sigmoid colon were normal. The rectum was normal as well. There were no masses, polyps or diverticula noted in the entire colon. SUMMARY OF FINDINGS: Normal colonoscopy.
[2019-05-10 09:05] VITALS: BP 119/70; PULSE 50; RESP 16
== END 2019-05-10 09:30 | disposition home or self-care (01) ==
LOC: ORWHC2ENDO 07:44
PROVIDERS: ATTEND Surgery
DX: Z12.11 Encounter for screening for malignant neoplasm of colon (principal); Z86.010 Personal history of colon polyps; I25.2 Old myocardial infarction; I25.10 Atherosclerotic heart disease of native coronary artery without angina pectoris; I10 Essential (primary) hypertension; E78.5 Hyperlipidemia, unspecified; Z79.82 Long term (current) use of aspirin; Z79.899 Other long term (current) drug therapy; Z95.5 Presence of coronary angioplasty implant and graft; Z98.818 Other dental procedure status; Z82.49 Family history of ischemic heart disease and other diseases of the circulatory system
CPT/HCPCS: G0105; J2001; J2704

== ENCOUNTER → 2020-11-13 | Outpatient (CLI) | payer BC ==
[2020-11-13 17:43] LABS: African American GFR (CKD) 109.5 (60.0-200.0); Albumin 4.3 g/dL (3.80-4.90); Albumin/Globulin Ratio 1.87 (1.60-3.17); Anion Gap 7.8 mmol/L (4.00-12.00); BUN/Creat Ratio 21.11 Ratio (12.00-20.00); Carbon Dioxide 25.2 mmol/L (21.6-31.8); Chol/HDL Ratio 3.58; Globulin 2.3 g/dL (1.6-3.3); LDL Cholesterol,Calculated 66.4 mg/dL (0.0-131.0); Magnesium 2.1 mg/dL (1.5-2.4); Non-African American GFR(CKD) 94.5 (60.0-200.0); Potassium 4.6 mmol/L (3.5-5.5); Total Bilirubin 0.9 mg/dL (0.3-1.2); Total Protein 6.6 g/dL (6.2-8.2); VLDL Calculation 13.6 mg/dL (5.00-40.00)
== END | disposition home or self-care (01) ==
LOC: LABWHC1 07:22
PROVIDERS: ATTEND Nurse Practitioner Adult Health
DX: E78.5 Hyperlipidemia, unspecified (principal); I10 Essential (primary) hypertension
CPT/HCPCS: 36415; 80053; 80061; 83735

== ENCOUNTER 2021-06-25 08:02 | Day surgery (SDC) | payer BC ==
[~2021-06-25 08:02] MED LIST changes: +ALPRAZolam 0.25 MG TAB PO PRN; +ALPRAZolam 0.5 MG TAB PO PRN; +ASPIRIN 325 MG TAB PO STA; +ATORVASTATIN 80 MG TAB PO STA; +HEPARIN SODIUM,PORCINE 10,000 UNIT in SODIUM CHLORIDE 0.9% 1,000 ML IRRIGATION PRN; +HEPARIN SODIUM,PORCINE 2,500 UNIT in SODIUM CHLORIDE 0.9% 250 ML IRRIGATION PRN; -LACTATED RINGERS 1,000 ML IV SCH; -LIDOCAINE 1% (10MG/ML) FOR IV START INTRADERMA PRN; +NITROGLYCERIN SL TABS 0.4 MG TAB SUBLINGUAL PRN; +SODIUM CHLORIDE 0.9% 1,000 ML in EMPTY BAG 1 BAG IV SCH
[2021-06-25] MEDS ORDERED: SODIUM CHLORIDE 0.9% 1,000 ML IV ONE (08:11)
[2021-06-25 08:20] VITALS: RESP 16
[2021-06-25] MEDS ORDERED: MIDAZOLAM 2 MG/2 ML VIAL IVP ONE (08:34)
[2021-06-25] MEDS: LIDOCAINE 1% INJ 10MG/ML (5 ML VIAL-PF) SQ ONE ×2 (08:36→09:28)
[2021-06-25] MEDS ORDERED: LIDOCAINE 1% INJ 10MG/ML (20 ML MDV) SQ ONE (08:36)
[2021-06-25] MEDS ORDERED: HEPARIN SODIUM 1,000 UN/ML (10ML VL) ONE ×2 (08:36→10:17)
[2021-06-25] MEDS ORDERED: VERAPAMIL 2.5 MG/ML 2 ML AMP ONE (08:36)
[2021-06-25] MEDS: LIDOCAINE 1% INJ 10MG/ML (30 ML VIAL-PF) SQ ONE ×2 (08:36→09:28)
[2021-06-25] MEDS ORDERED: VERAPAMIL SYRINGE (5 MG/10 ML) INTRAARTER ONE (08:38)
[2021-06-25] MEDS: HEPARIN SODIUM 1,000 UN/ML (10ML VL) IVP ONE ×3 (08:41→09:43)
[2021-06-25] MEDS ORDERED: niCARdipine 25 MG/10 ML VIAL ONE (08:57)
[2021-06-25] MEDS: MIDAZOLAM 2 MG/2 ML VIAL IVP ONE ×2 (09:00→09:33)
[2021-06-25] MEDS: NITROGLYCERIN 1000MCG/10ML SYRINGE INTRACORON ONE ×2 (09:03→09:48)
[2021-06-25] MEDS ORDERED: IOPAMIDOL-370 125ML BTL INJ ONE ×2 (09:12)
[2021-06-25] MEDS ORDERED: PRASUGREL 10 MG TAB ONE ×2 (10:09)
[2021-06-25] MEDS ORDERED: PRASUGREL 10 MG TAB PO ONE (10:13)
[2021-06-25] MEDS ORDERED: IOPAMIDOL-370 100ML BTL INJ ONE (10:13)
[2021-06-25] MEDS ORDERED: HEPARIN SODIUM 1,000 UN/ML (10ML VL) IVP ONE (10:18)
[2021-06-25] MEDS ORDERED: ATROPINE SULFATE 0.1 MG/ML 10ML SYRINGE IV PRN (10:21)
[2021-06-25] MEDS ORDERED: RX INFO: IV CONTRAST WAS GIVEN 1 EACH MISC MISCELLANE PRN (10:21)
[2021-06-25] MEDS ORDERED: ZOLPIDEM 5 MG TAB PO PRN (10:21)
[2021-06-25] MEDS ORDERED: MAG HYDROX/AL HYDROX/SIMETH 30 ML CUP PO PRN (10:21)
--- NOTE | 2021-06-25 12:48 | P.PCN ---
Date of Procedure: 06/25/21 Operative Findings: CARDIAC CATHETERIZATION AND PERCUTANEOUS CORONARY INTERVENTION PERFORMING PHYSICIAN: Dinesh Dickson MD, [facility] PROCEDURE PERFORMED: 1. Selective right and left coronary angiogram 2. Left heart catheterization 3. Successful stenting of proximal RCA using 3.5 x 18 mm Xience IDA which with an excellent angiographic results 4. Successful stenting of the PLV branch of the RCA using 3.0 x 15 mm Xience IDA with an excellent angiographic results 5. Right common femoral artery angiogram INDICATION: This is a pleasant 56-year-old gentleman who is known to have coronary artery disease and underwent stenting of the RCA in the past was experiencing symptoms of chest discomfort and shortness of breath. He underwent myocardial perfusion imaging stress test and that came in to be abnormal showing reversibility in the light of that heart catheterization was advised COMPLICATION: None APPROACH: Right radial artery and right common femoral artery LEVEL OF SEDATION: Moderate with the sedation time off 110 minutes PROCEDURE DESCRIPTION: After obtaining an informed consent the patient was brought to the cardiac medical lab technologist. The right radial artery was cannulated using puncture technique, the micropuncture wire passed easily then I placed a 6-Nepalese sheath. I gave the patient 2 mg of verapamil IA and then 5000 use of heparin intravenous. Selective right and left coronary angiogram performed using JR4 and JL 3.5 cath eters. Left heart catheterization was performed using the JR4 catheter which across aortic valve then I did pullback across the valve. After that I did intervene on the right coronary artery. SELECTIVE CORONARY ANGIOGRAM: The right coronary artery: Is a large caliber vessel and its a dominant vessel. The proximal RCA has a lesion appeared to be in the range of 70% just proximal to a stented segment. The mid RCA is tortuous was mild disease only. The RCA distally bifurcates into PDA and PLV branches and both are large caliber vessels. The PLV branch has a tight lesion appeared to be in the range of 90% the fatty has progressed compared to before Left main: The left main has mild disease only. Bifurcates into left circumflex and left anterior descending artery The left circumflex: Is a large caliber vessel and its and on dominant vessel. The proximal left circumflex has a lesion appeared to be in the range of 60-70%. The left circumflex proximally gives rises into a large OM branch which appeared to be angiographically normal. The distal left circumflex is angiographically normal and gives rises into a second OM branch which appeared to be normal as well. The left anterior descending artery: Is a large caliber vessel. The LAD is angiographically normal.. Gives rises into a large diagonal branch which seems to be angiographically normal HEMODYNAMICS: The LVEDP was about 12 mmHg without significant gradient across aortic valve PCI OF THE RCA: Anticoagulation was initiated using heparin with continuous ACT monitoring throughout the case. Initially I engaged the RCA using an Amplatzer 0.75 guiding catheter. Attempted wiring the RCA using a run-through wire was unsuccessful but finally was successful using a whisper wire. I left the run-through wire in place. Attempting advancing 3.0 x 15 mm stent was unsuccessful because the stent will not make the turn around to the distal right coronary artery. At that point I did pull the run-through wire out and I did attempt advancing the stent with a guide extension and that was guide liner and with that I was unable to advance the stent. After that I did exchange my whisper wire into an Ironman and then I advanced the occluded distal PLV branch of the right coronary artery. Attempting advancing the stent also at that point was unsuccessful and the guide and wires were kicked out. For the lack of support from radial approach I decided to axis the groin. The right common femoral artery was cannulated using micropuncture technique, the micropuncture wire passed easily then I placed a 6-Nepalese sheath in the right common femoral artery. Again I did engage the RCA using an Amplatzer. 0.75 guiding catheter. The guiding catheter was definitely seated better. I rewire the RCA again using 2 wires and that was the whisper wire and then a run through wire. After that I did exchange my 014 whisper wire into an Ironman/mail man wire. I did at that point balloon angioplasty of the proximal right coronary artery using 3.0 x 15 mm balloon. The balloon was inflated twice. With that being done I was able to advance a 30 by 15 mm stent into the distal right coronary artery/PLV branch where the stent was positioned under fluoroscopy guidance and deployed under its nominal pressure. I did that after I pulled the kenney wire out. Then 4 the proximal right coronary artery I deployed 3.5 x 18 mm another sinus drug-eluting stent where the stent was again positioned under fluoroscopy guidance and deployed under its nominal pressure. The following angiogram showed a hazy spot/possible calcifications at a stented segment in the proximal right coronary artery. I decided to do postdilated elevation but I was able to advance noncompliant balloon. The guide was kicked out again. At this point I did engage the RCA using JR4 guiding catheter. I did wire the RCA again using a whi sper and the run-through wire. I was able to advance 3 5 x 15 mm see my compliant balloon and I did PTCA ballooning again for the stent in the proximal right coronary artery. The final angiogram showed TASHI 3 flow in the right coronary artery and that lesion behind the stent continues to be there likely represent calcifications. The flow in the right coronary artery was TASHI-3 flow and no EKG changes and the patient was completely asymptomatic. Madisyn and I did selective right common femoral artery angiogram CONCLUSION: #1 Critical disease involving the PLV branch of the RCA. Severe disease involving the proximal RCA. I performed successful stenting of both lesions #2 Intermediate to severe disease involving the proximal left circumflex coronary artery #3 Mild disease involving the LAD POSTPROCEDURE MANAGEMENT: #1 dual antiplatelet therapy #2 aggressive cholesterol control #3 follow-up with the patient
[2021-06-25 13:38] VITALS: BMI 30.4
[2021-06-25] MEDS: METOPROLOL TARTRATE 25 MG TAB PO SCH (20:27)
[2021-06-26 08:31] LABS: Basophils % (A) 1 %; Eosinophils # (A) 0.3 k/uL (0-0.7); Eosinophils % (A) 4 %; HCT 48.5 % (39.0-53.0); HGB 16.2 gm/dL (13.0-17.5); Lymphocytes # (A) 1.4 k/uL (1.0-4.8); Lymphocytes % (A) 19 %; MCH 30.5 pg (25.0-35.0); MCHC 33.4 g/dL (31.0-37.0); MCV 91.4 fL (80.0-100.0); Mean Platelet Volume 8.1; Monocytes # (A) 0.4 k/uL (0-1.0); Monocytes % (A) 5 %; Neutrophils # (A) 5.1 k/uL (1.3-7.7); Neutrophils % (A) 69 %; Platelet Count 218 k/uL (150-450); RBC 5.31 m/uL (4.30-5.90); RDW 13.4 % (11.5-15.5); WBC 7.4 k/uL (3.8-10.6)
[2021-06-26 08:34] LABS: African American GFR (CKD) >90 (>60 ml/min/1.73 sqM); Anion Gap 5 mmol/L; Blood Urea Nitrogen 17 mg/dL (9-20); Calcium 8.6 mg/dL (8.4-10.2); Carbon Dioxide 28 mmol/L (22-30); Chloride 105 mmol/L (98-107); Glucose 120 mg/dL (74-99); Non-African American GFR(CKD) >90 (>60 ml/min/1.73 sqM); Potassium 4.1 mmol/L (3.5-5.1); Sodium 138 mmol/L (137-145)
[2021-06-26] MEDS ORDERED: ASPIRIN 81 MG PO SCH (09:00)
[2021-06-26] MEDS ORDERED: PRASUGREL 10 MG TAB PO SCH (09:00)
[2021-06-26] MEDS ORDERED: ATORVASTATIN 80 MG TAB PO SCH (09:00)
[2021-06-26] MEDS: METOPROLOL TARTRATE 25 MG TAB PO SCH (09:14)
--- NOTE | 2021-06-26 09:35 | P.DS ---
Providers Attending physician: Dinesh Dickson Consults: 06/25/21 10:21 Consult Physician Routine Consulting Provider: [facility] Consult Reason/Comments: Post Interventional patient Do you want consulting provider notified?: Already Contacted Primary care physician: Marcos Torre [facility] Course: The patient is a 56-year-old gentleman with a CAD and prior stenting of the RCA who underwent yesterday a heart catheterization for chest discomfort/shortness of breath and abnormal myocardial perfusion imaging stress test. Heart catheterization showed severe disease involving the PLV branch of the RCA and the proximal RCA. He underwent successful stenting of both with a very complex and long procedure but with a good angiographic results but N He's here for a follow-up visit. Both sides the right femoral and right radial are soft and nontender without any bruises The patient is asymptomatic and he is stable hemodynamically He is going to be discharged home on dual antiplatelet therapy along with high intensity statin and I'll follow-up with the patient next week in the office Plan - Discharge Summary Discharge Rx Participant: No New Discharge Prescriptions: New Prasugrel [Effient] 10 mg PO DAILY #90 tab Continue Aspirin 81 mg PO DAILY #30 chew Atorvastatin [Lipitor] 80 mg PO DAILY #30 tab Metoprolol Tartrate [Lopressor] 25 mg PO BID #60 tab Nitroglycerin Sl Tabs [Nitrostat] 0.4 mg SUBLINGUAL Q5M PRN #5 tab PRN Reason: Chest Pain lisinopriL [Zestril] 2.5 mg PO DAILY Discharge Medication List Aspirin 81 mg PO DAILY #30 chew 01/24/18 [Rx] Atorvastatin [Lipitor] 80 mg PO DAILY #30 tab 01/24/18 [Rx] Metoprolol Tartrate [Lopressor] 25 mg PO BID #60 tab 01/24/18 [Rx] Nitroglycerin Sl Tabs [Nitrostat] 0.4 mg SUBLINGUAL Q5M PRN #5 tab 01/24/18 [Rx] lisinopriL [Zestril] 2.5 mg PO DAILY 05/09/19 [History] Prasugrel [Effient] 10 mg PO DAILY #90 tab 06/26/21 [Rx] Follow up Appointment(s)/Referral(s): Dinesh Dickson MD [STAFF PHYSICIAN] - 07/02/21 10:30 am (follow up appointment is on Monday, July 02 at 10) Patient Instructions/Handouts: Heart Catheterization (DC), After Radial Heart Catheterization (GEN), Procedural Sedation (ED) Activity/Diet/Wound Care/Special Instructions: No driving today or tomorrow. Remove dressing tomorrow afternoon, ok to shower but no baths, pools, hot tubs, soaking wrist for five days. No need to apply dressing, ointments, powders to site. Leave open to the air. Avoid bending, flexing, pushing, pulling, lifting greater than 5 lbs for 5days. If puncture site bleeds, apply firm direct pressure and return to ER. Signs of infections IE: fever, rash, drainage from puncture site, swelling contact doctor for further orders/return to ER. Left Heart Cath instructions: No driving for two days. Ok to shower tomorrow but no baths, soaking for three days. Avoid pushing, pulling, straining, lifting greater than 10 for 3 days. signs of infectioin: fever, rash, swelling of puncture site, drainage from puncture site contact doctor or return to ER. Call 911 to come to ER for heavy bleeding from puncture site. Do not drive self.
[2021-06-26 11:32] VITALS: BP 131/79; PULSE 57; TEMP 98.2
== END 2021-06-26 11:29 | disposition home or self-care (01) ==
LOC: CATHCVL 08:02 → 3SCARD 10:54 → CATHCVL 06-26 11:29
PROVIDERS: ATTEND Internal Medicine Interventional Cardiology
DX: I25.10 Atherosclerotic heart disease of native coronary artery without angina pectoris (principal); Z20.822 Contact with and (suspected) exposure to COVID-19; Z79.82 Long term (current) use of aspirin; Z79.899 Other long term (current) drug therapy; Z95.5 Presence of coronary angioplasty implant and graft
CPT/HCPCS: 93458; 80048; 85025; 87635; C9600; C9601; C1769 ×5; C1760; C1887 ×4; C1894 ×2; C1725 ×4; C1874 ×3; J2250; J2001; J1644; Q9967 ×2

== ENCOUNTER → 2022-07-29 | Outpatient (CLI) | payer BC ==
[2022-07-29 20:14] LABS: HCT 50.4 % (39.6-50.0); HGB 16.6 g/dL (13.0-17.0); MCH 29.4 pg (27.0-32.0); MCHC 32.9 g/dL (32.0-37.0); MCV 89.4 fL (80.0-97.0); Mean Platelet Volume 10.7 fL (9.5-12.2); NRBC Per 100 WBC 0 /100 WBCS (0.0-0.0); Platelet Count 232 X 10*3/uL (140-440); RBC 5.64 X 10*6/uL (4.40-5.60); RDW 12.9 % (11.5-14.5); WBC 7.12 X 10*3/uL (4.50-10.00)
[2022-07-29 20:36] LABS: African American GFR (CKD) 110.6 (60.0-200.0); Anion Gap 8.6 mmol/L (10.00-18.00); Blood Urea Nitrogen 15.5 mg/dL (9.0-27.0); Carbon Dioxide 28.4 mmol/L (20.0-27.5); Non-African American GFR(CKD) 95.5 (60.0-200.0); Potassium 4.4 mmol/L (3.5-5.5)
== END | disposition home or self-care (01) ==
LOC: LABPAT 12:16
PROVIDERS: ATTEND Internal Medicine Interventional Cardiology
DX: Z01.812 Encounter for preprocedural laboratory examination (principal); R07.9 Chest pain, unspecified
CPT/HCPCS: 36415; 80051; 82565; 84520; 85027

== ENCOUNTER 2022-08-08 07:45 | Day surgery (SDC) | payer BC ==
[2022-08-05 13:33] VITALS: BMI 29.5
[~2022-08-08 07:45] MED LIST changes: -ATORVASTATIN 80 MG TAB PO STA; -HEPARIN SODIUM,PORCINE 10,000 UNIT in SODIUM CHLORIDE 0.9% 1,000 ML IRRIGATION PRN; -HEPARIN SODIUM,PORCINE 2,500 UNIT in SODIUM CHLORIDE 0.9% 250 ML IRRIGATION PRN
[2022-08-08 08:13] VITALS: TEMP 97.2
[2022-08-08] MEDS ORDERED: VERAPAMIL 2.5 MG/ML 2 ML AMP ONE (08:37)
[2022-08-08] MEDS ORDERED: LIDOCAINE 1% INJ 10MG/ML (5 ML VIAL-PF) SQ ONE (08:47)
[2022-08-08] MEDS ORDERED: MIDAZOLAM 2 MG/2 ML VIAL IV ONE ×2 (08:48→09:11)
[2022-08-08] MEDS ORDERED: HEPARIN SODIUM 1,000 UN/ML (10ML VL) IV ONE ×2 (08:58→09:20)
[2022-08-08] MEDS ORDERED: HEPARIN SODIUM 1,000 UN/ML (10ML VL) ONE (09:17)
[2022-08-08] MEDS ORDERED: ADENOSINE 90 MG in SODIUM CHLORIDE 0.9% 60 ML IVP ONE (09:28)
[2022-08-08] MEDS ORDERED: RX INFO: IV CONTRAST WAS GIVEN 1 EACH MISC MISCELLANE PRN (09:36)
--- NOTE | 2022-08-08 09:41 | P.PCN ---
Date of Procedure: 08/08/22 Operative Findings: CARDIAC CATHETERIZATION PERFORMING PHYSICIAN: Dinesh Dickson MD, RPVI PROCEDURE PERFORMED: 1. Selective right and left coronary angiogram 2. Fractional flow reserve of the RCA and LCx INDICATION: Unstable angina in this 57-year-old gentleman with coronary artery disease and prior stenting of the RCA and PLV branch of the RCA as well as hypertension and dyslipidemia COMPLICATION: None APPROACH: Right radial artery LEVEL OF SEDATION: Moderate with a sedation length of 44 minutes PROCEDURE DESCRIPTION: After obtaining an informed consent, the patient was brought to cardiac qc lab technician. Local anesthesia was performed using lidocaine subcutaneously. The right radial artery was cannulated using Seldinger technique, the guidewire passed easily, following that we advanced a 5-Macanese sheath dilator assembly, the wire and dilator were removed and sheath was flushed. Following that, 2 mg of verapamil along with 5000 unit heparin were given. Selective right and left coronary angiogram using a 6-Macanese JR4 and JL 3.5 catheters. Following that I did fractional flow reserve of the RCA and LCx The procedure was completed there was no complication. SELECTIVE CORONARY ANGIOGRAM: The right coronary artery: Large caliber vessel and a dominant vessel. The proximal RCA is a stented and the stent is patent. The mid RCA has intermediate lesion appears to be in the range of 60%. FFR was performed and came in to be nonischemic Left main: Has mild disease only. Bifurcates into LCx and LAD. The left circumflex: Medium caliber vessel nondominant vessel. The ostial/proximal LCx has intermediate lesion. FFR was performed and came in to be nonischemic The left anterior descending artery: Large caliber vessel and a dominant vessel. The LAD has mild disease only and gives rises into a large diagonal branch which appeared to be angiographically normal. FFR OF THE RCA AND LCX: Anticoagulation was initiated using heparin with continuous ECG monitoring. Subsequently after zeroing the Doppler wire and equalizing between the Doppler wire and guiding catheter which was a L.75 guiding catheter in the RCA was wired. The wire was advanced distal to the lesion in the mid RCA. After that we did iFR and FFR and both came in to be nonischemic. FFR came in to be an 0.87. After that I did again equalized between the Doppler wire and the guiding catheter for the left groin system which was JL 3.5 guiding catheter and we did after that engaged the left main and wire the left circumflex. We did at that point iFR and that came in to be nonischemic as well. The procedure was completed was no complication CONCLUSION: 1. Patent stent in the proximal RCA. Intermediate disease involving the mid RCA. FFR was nonischemic. Taken stent in the PLV branch of the RCA 2. Intermediate disease involving the ostial/proximal LCx. FFR was nonischemic as well POSTPROCEDURE MANAGEMENT: Maximize medical treatment and follow-up with the patient
[2022-08-08] MEDS ORDERED: SODIUM CHLORIDE 0.9% 1,000 ML IV SCH (09:45)
[2022-08-08 11:27] VITALS: RESP 16
[2022-08-08 13:53] VITALS: BP 145/78; PULSE 48
== END 2022-08-08 13:13 | disposition home or self-care (01) ==
LOC: CATHCVL 07:45
PROVIDERS: ATTEND Internal Medicine Interventional Cardiology
DX: I25.10 Atherosclerotic heart disease of native coronary artery without angina pectoris (principal); I77.819 Aortic ectasia, unspecified site; I35.1 Nonrheumatic aortic (valve) insufficiency; I10 Essential (primary) hypertension; E78.5 Hyperlipidemia, unspecified; Z95.5 Presence of coronary angioplasty implant and graft; Z82.49 Family history of ischemic heart disease and other diseases of the circulatory system; Z79.82 Long term (current) use of aspirin; Z79.899 Other long term (current) drug therapy
CPT/HCPCS: 93454; J2250; J2001; J1644; J0153; 93571

== ENCOUNTER → 2022-10-20 | Day surgery (SDC) | payer BC ==
[~2022-10-20] MED LIST changes: -ALPRAZolam 0.25 MG TAB PO PRN; -ALPRAZolam 0.5 MG TAB PO PRN; -ASPIRIN 325 MG TAB PO STA; +LACTATED RINGERS 1,000 ML IV SCH; -NITROGLYCERIN SL TABS 0.4 MG TAB SUBLINGUAL PRN; +PROPOFOL 10 MG/ML 20 ML VIAL IV ONE; -SODIUM CHLORIDE 0.9% 1,000 ML in EMPTY BAG 1 BAG IV SCH
[2022-10-20 09:25] VITALS: TEMP 97.5
--- NOTE | 2022-10-20 09:46 | P.GSHP ---
History of Present Illness H&P Date: 10/20/22 Chief Complaint: Diarrhea This a 57-year-old male presents today for colonoscopy patient's issues with diarrhea rectal bleeding. Past Medical History Past Medical History: Hyperlipidemia, Hypertension, Myocardial Infarction (MD) Additional Past Medical History / Comment(s): stress test in March 2022, SOB left over from covid,changed up meds. ongoing diarrhea some blood in stool in june for 1 week. Last Myocardial Infarction Date:: 01/2018 History of Any Multi-Drug Resistant Organisms: None Reported Past Surgical History: Heart Catheterization, Heart Catheterization With Stent Additional Past Surgical History / Comment(s): wisdom teeth extracted, colonoscopy/polypectomy(benign) Past Anesthesia/Blood Transfusion Reactions: No Reported Reaction Date of Last Stent Placement:: 06/25/21 Smoking Status: Never smoker - Past Family History Mother Family Medical History: Cancer Father Family Medical History: Myocardial Infarction (MD) Additional Family Medical History / Comment(s): MD at age 49 or 50 Brother(s) Family Medical History: Cancer Medications and Allergies Home Medications Medication Instructions Recorded Confirmed Type Aspirin 81 mg PO DAILY #30 chew 01/24/18 10/20/22 Rx Atorvastatin [Lipitor] 80 mg PO DAILY #30 tab 01/24/18 10/20/22 Rx Metoprolol Tartrate [Lopressor] 25 mg PO BID #60 tab 01/24/18 10/20/22 Rx Nitroglycerin Sl Tabs [Nitrostat] 0.4 mg SUBLINGUAL Q5M PRN #5 tab 01/24/18 10/20/22 Rx lisinopriL [Zestril] 2.5 mg PO DAILY 05/09/19 10/20/22 History Allergies Allergy/AdvReac Type Severity Reaction Status Date / Time No Known Allergies Allergy Verified 10/20/22 09:18 Surgical - Exam Vital Signs Temp Pulse Resp BP Pulse Ox 97.5 F L 61 16 150/87 94 L 10/20/22 09:24 10/20/22 09:24 10/20/22 09:24 10/20/22 09:24 10/20/22 09:24 - General well developed, well nourished, no distress - Eyes PERRL - ENT normal pinna - Neck no masses - Respiratory normal expansion - Cardiovascular Rhythm: regular - Abdomen Abdomen: soft, non tender Assessment and Plan Assessment: History of diarrhea and rectal bleeding. We'll perform colonoscopy.
--- NOTE | 2022-10-20 09:57 | P.OP ---
Date of Procedure: 10/20/22 Preoperative Diagnosis: Diarrhea Rectal bleeding Postoperative Diagnosis: Internal hemorrhoids Sigmoid colon biopsy pending Procedure(s) Performed: Colonoscopy Anesthesia: MAC Surgeon: Baljit Mcdonald Pathology: other (Sigmoid colon) Condition: stable Disposition: PACU Description of Procedure: The patient's placed on the endoscopy table in the lateral position. He received IV sedation. Digital rectal exam was performed. This revealed internal hemorrhoids. The flexible colonoscope was then placed patient anus passed throughout the entire colon. The ileocecal valve was visualized. The cecum, ascending and transverse colon appeared normal. The descending colon appeared normal. In the sigmoid colon was a few scattered diverticula. There is no significant inflammation. Due to the patient's symptoms of diarrhea a random biopsy was performed. The scope summer back the rectum and this appeared normal. Scope withdrawn for patient.
[2022-10-20 11:28] VITALS: RESP 14
[2022-10-20 11:32] VITALS: BP 170/83; PULSE 51
== END | disposition home or self-care (01) ==
LOC: ORWHC2ENDO 08:38
PROVIDERS: ATTEND Surgery
DX: K52.839 Microscopic colitis, unspecified (principal); K62.5 Hemorrhage of anus and rectum; K64.8 Other hemorrhoids; I10 Essential (primary) hypertension; E78.5 Hyperlipidemia, unspecified; I25.10 Atherosclerotic heart disease of native coronary artery without angina pectoris; I25.2 Old myocardial infarction; Z86.16 Personal history of COVID-19; Z82.49 Family history of ischemic heart disease and other diseases of the circulatory system; Z98.890 Other specified postprocedural states; Z79.82 Long term (current) use of aspirin; Z79.899 Other long term (current) drug therapy
CPT/HCPCS: 88305; 88313; 45380; J2704